=== PATIENT | female | born 1965 | race Caucasian/White ===

== ENCOUNTER → 2016-11-26 | Outpatient (CLI) | payer BC ==
--- NOTE | 2016-11-26 14:30 | MM ---
Reason for exam: screening (asymptomatic). Baseline mammogram. Physical Findings: Nurse did not find any significant physical abnormalities on exam. MG Screening Mammo w CAD Bilateral CC and MLO view(s) were taken. There are scattered fibroglandular densities. Nodularity measuring up to 7mm middle to posterior depth right breast upper outer quadrant has reinform shape and are suspected to represent prominent intramammary lymph nodes. Solitary nodularity in the left upper outer quadrant. These results were verbally communicated with the patient and result sheet given to the patient on 11/26/16. ASSESSMENT: Incomplete: need additional imaging evaluation, BI-RAD 0 RECOMMENDATION: Ultrasound of both breasts. (upper outer quadrants) MTDD
--- NOTE | 2016-11-26 14:39 | USB ---
Reason for exam: additional evaluation requested from abnormal screening. US Breast Workup Limited MICHELLE Right breast ultrasound demonstrates a 1.1 x 1.1 x 0.8cm oval node at 11 o' clock and a 0.9 x 0.8 x 0.5cm oval node at 10 o'clock. These are benign findings on ultrasound and likely correspond to the mammographic findings and can be reassessed in 6 months on mammogram. Left breast ultrasound demonstrates: - a 1.5 x 2.1 x 1.5cm round, suspected lipoma, hyperechoic lesion at 3 o'clock, - a 1.7 x 1.6 x 0.7cm oval lesion at 1 o'clock and a 2.9 x 2.3 x 1.2cm oval lesion at 1 o'clock, deep positioning limits evaluation. If these are lymph nodes they are mildly enlarged. Correlate with physical exam findings. 6 month follow up ultrasound recommended and also to reassess the echogenic lesion. These results were verbally communicated with the patient and result sheet given to the patient on 11/26/16. ASSESSMENT: Probably benign, BI-RAD 3 RECOMMENDATION: Follow-up diagnostic mammogram of the right breast in 6 months. Ultrasound of the left breast in 6 months. (12-3 o'clock) NAYELID
== END | disposition home or self-care (01) ==
LOC: RADMAMWWP 12:37
PROVIDERS: ATTEND Pediatrics
DX: Z12.31 Encounter for screening mammogram for malignant neoplasm of breast (principal); R92.8 Other abnormal and inconclusive findings on diagnostic imaging of breast
CPT/HCPCS: 76642; G0202

== ENCOUNTER → 2016-12-31 | Outpatient (CLI) | payer BC ==
[2016-12-31 09:34] VITALS: BMI 51.9
== END ==
LOC: MNTWWP 09:03
PROVIDERS: ATTEND Surgery
DX: E66.9 Obesity, unspecified (principal)
CPT/HCPCS: 97802

== ENCOUNTER → 2018-01-07 | Outpatient (CLI) | payer BC ==
--- NOTE | 2018-01-09 08:12 | MM ---
Reason for exam: screening (asymptomatic). Last mammogram was performed 7 months ago. Physical Findings: A clinical breast exam by your physician is recommended on an annual basis and results should be correlated with mammographic findings. MG Screening Mammo w CAD Bilateral CC and MLO view(s) were taken. Prior study comparison: June 02, 2017, right breast MG diagnostic mammo RT w CAD. November 26, 2016, bilateral MG screening mammo w CAD. There are scattered fibroglandular densities. No suspicious abnormality. No significant changes when compared with prior studies. ASSESSMENT: Negative, BI-RAD 1 RECOMMENDATION: Routine screening mammogram of both breasts in 1 year.
== END | disposition home or self-care (01) ==
LOC: RADMAMWWP 11:23
PROVIDERS: ATTEND Pediatrics
DX: Z12.31 Encounter for screening mammogram for malignant neoplasm of breast (principal)
CPT/HCPCS: 77067

== ENCOUNTER → 2019-02-09 | Outpatient (CLI) | payer BC ==
--- NOTE | 2019-02-10 08:36 | MM ---
Reason for exam: screening (asymptomatic). Last mammogram was performed 1 year and 1 month ago. Physical Findings: A clinical breast exam by your physician is recommended on an annual basis and results should be correlated with mammographic findings. MG Screening Mammo w CAD Bilateral CC, MLO, and XCCL view(s) were taken. Prior study comparison: January 07, 2018, bilateral MG screening mammo w CAD. June 02, 2017, right breast MG diagnostic mammo RT w CAD. There are scattered fibroglandular densities. There is chronic nodularity bilaterally. There is no discrete abnormality. ASSESSMENT: Benign, BI-RAD 2 RECOMMENDATION: Routine screening mammogram of both breasts in 1 year.
== END | disposition home or self-care (01) ==
LOC: RADMAMWWP 09:58
PROVIDERS: ATTEND Pediatrics
DX: Z12.31 Encounter for screening mammogram for malignant neoplasm of breast (principal)
CPT/HCPCS: 77067

== ENCOUNTER → 2019-10-25 | Outpatient (CLI) | payer BC ==
--- NOTE | 2019-10-25 16:27 | US ---
EXAMINATION TYPE: US thyroid st tissue head/neck DATE OF EXAM: 10/25/2019 COMPARISON: NONE CLINICAL HISTORY: 54-year-old female E21.0 Primary hyperparathyroidism. TECHNIQUE: Multiple sonographic images of the thyroid gland are obtained. FINDINGS: GLAND SIZE: Right Lobe: 4.7 x 1.0 x 1.1 cm Overall Parenchyma: homogenous Left Lobe: 4.7 x 0.8 x 1.1 cm Overall Parenchyma: homogeneous Isthmus Thickness: 0.3 cm NODULES RIGHT: # of nodules measured on right: 0 LEFT: # of nodules measured on left: 0 ISTHMUS: # of nodules measured in the isthmus: 0 Bilateral neck scanned, no evidence of lymphadenopathy. IMPRESSION: Normal-sized thyroid gland. No discrete nodule.
== END | disposition home or self-care (01) ==
LOC: RADUSWWP 12:49
PROVIDERS: ATTEND Pediatrics
DX: E21.0 Primary hyperparathyroidism (principal)
CPT/HCPCS: 76536

== ENCOUNTER → 2020-06-01 | Outpatient (CLI) | payer BC ==
--- NOTE | 2020-06-05 08:18 | MM ---
Reason for exam: screening (asymptomatic). Last mammogram was performed 1 year and 4 months ago. Physical Findings: A clinical breast exam by your physician is recommended on an annual basis and results should be correlated with mammographic findings. MG Screening Mammo w CAD Bilateral CC and MLO view(s) were taken. Prior study comparison: February 09, 2019, bilateral MG screening mammo w CAD. January 07, 2018, bilateral MG screening mammo w CAD. There are scattered fibroglandular densities. There is chronic nodularity bilaterally. No significant changes when compared with prior studies. ASSESSMENT: Benign, BI-RAD 2 RECOMMENDATION: Routine screening mammogram of both breasts in 1 year.
== END | disposition home or self-care (01) ==
LOC: RADMAMWWP 13:17
PROVIDERS: ATTEND Physician Assistant
DX: Z12.31 Encounter for screening mammogram for malignant neoplasm of breast (principal)
CPT/HCPCS: 77067

== ENCOUNTER → 2020-10-23 | Outpatient (CLI) | payer BC ==
--- NOTE | 2020-10-23 17:05 | US ---
EXAMINATION TYPE: US pelvic complete DATE OF EXAM: 10/23/2020 COMPARISON: NONE CLINICAL HISTORY: 55-year-old female N92.6 Irregular menstruation, unspecified. Patient said she has always had irregular cycles. TECHNIQUE: Transabdominal sonographic images of the pelvis were acquired. Denied TV FINDINGS: Copy Reader notes: Large patient body habitus Date of LMP: today, 10/23/2020 EXAM MEASUREMENTS: Uterus: 8.9 x 6.3 x 5.7 cm Endometrial Stripe: 2.1 cm Right Ovary: 2.8 x 2.5 x 1.2 cm Left Ovary: not seen 1. Uterus: Retroverted but otherwise wnl 2. Endometrium: Excessively thickened 3. Right Ovary: wnl 4. Left Ovary: Obscured by overlying bowel gas 5. Bilateral Adnexa: wnl 6. Posterior cul-de-sac: wnl IMPRESSION: 1. Retroverted uterus. 2. Excessively thickened endometrial stripe measuring 2.1 cm. Recommend LOGISTICS SERVICE REPRESENTATIVE referral for further f ollow-up and evaluation. Differential considerations include endometrial carcinoma, underlying polyps , and endometrial hyperplasia. 3. Left ovary obscured by bowel gas.
== END | disposition home or self-care (01) ==
LOC: RADUSWWP 09:41
PROVIDERS: ATTEND Pediatrics
DX: R93.89 Abnormal findings on diagnostic imaging of other specified body structures (principal); N85.4 Malposition of uterus; R14.3 Flatulence
CPT/HCPCS: 76856

== ENCOUNTER → 2021-01-24 | Outpatient (CLI) | payer BC, OTHER ==
[2021-01-24 14:19] LABS: Basophils % (A) 1 %; Eosinophils # (A) 0.2 k/uL (0-0.7); Eosinophils % (A) 3 %; HCT 42.9 % (34.0-46.0); HGB 14.3 gm/dL (11.4-16.0); Lymphocytes # (A) 1.6 k/uL (1.0-4.8); Lymphocytes % (A) 29 %; MCH 30.4 pg (25.0-35.0); MCHC 33.4 g/dL (31.0-37.0); MCV 91.1 fL (80.0-100.0); Monocytes # (A) 0.4 k/uL (0-1.0); Monocytes % (A) 6 %; Neutrophils # (A) 3.3 k/uL (1.3-7.7); Neutrophils % (A) 59 %; Platelet Count 255 k/uL (150-450); RBC 4.71 m/uL (3.80-5.40); RDW 12.8 % (11.5-15.5); WBC 5.6 k/uL (3.8-10.6)
== END | disposition home or self-care (01) ==
LOC: LABPAT 13:15
PROVIDERS: ATTEND Obstetrics & Gynecology
DX: Z01.812 Encounter for preprocedural laboratory examination (principal)
CPT/HCPCS: 36415; 85025; 93005

== ENCOUNTER 2021-01-30 06:28 | Day surgery (SDC) | payer BC, OTHER ==
[2021-01-25 14:01] VITALS: BMI 37.3
--- NOTE | 2021-01-29 19:31 | P.HPOB ---
History of Present Illness H&P Date: 01/29/21 Chief Complaint: Thickened endometrium, menorrhagia with irregular cycle This is a 55 y.o. female, 1, para 1, who presents for dilatation and curettage with hysteroscopy due to endometrial thickening on ultrasound and menorrhagia with irregular cycle. She complains of menses occuring approximately monthly, but lasting anywhere from 3-7 days up to 2 weeks. She has lost up to 100 lbs. in the last year and periods have become more regular. Her pelvic US showed uterus measuring 8.9 x 6.3 x 5.9 cm with endometrium of 2.1 cm. Her right ovary was normal and left ovary was normal. OB Hx: . 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 No hx. STDs. 1 current partner. Using condoms. Social Hx: . 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 Review of Systems Constitutional: Denies chills, Denies fever Eyes: denies blurred vision, denies pain Ears, nose, mouth and throat: Denies headache, Denies sore throat Cardiovascular: Denies chest pain, Denies shortness of breath Respiratory: Denies cough Gastrointestinal: Denies abdominal pain, Denies diarrhea, Denies nausea, Denies vomiting Genitourinary: Reports menorrhagia, Denies dysuria, Denies hematuria Menstruation: Reports menses variable, Reports period heavy Musculoskeletal: Denies myalgias Integumentary: Denies pruritus, Denies rash Neurological: Denies numbness, Denies weakness Psychiatric: Denies anxiety, Denies depression Endocrine: Denies fatigue, Denies weight change Past Medical History Past Medical History: Diabetes Mellitus, Hypertension, Thyroid Disorder History of Any Multi-Drug Resistant Organisms: None Reported Additional Past Surgical History / Comment(s): Parathyroidectomy. Past Anesthesia/Blood Transfusion Reactions: No Reported Reaction Past Psychological History: No Psychological Hx Reported Smoking Status: Never smoker Past Alcohol Use History: Rare Past Drug Use History: Marijuana Additional Drug Use History / Comment(s): Occasional Marijuana use. Aware no use 24 hrs prior to procedure. - Past Family History Sister(s) Family Medical History: Deep Vein Thrombosis (DVT) Mother Family Medical History: Hypertension Medications and Allergies Home Medications Medication Instructions Recorded Confirmed Type Ascorbic Acid [Vitamin C] 1,000 mg PO DAILY 01/25/21 01/25/21 History Ergocalciferol [Vitamin D2 (1250 1,250 mcg PO MO 01/25/21 01/25/21 History Mcg = 70592 Iu)] Levothyroxine Sodium 25 mcg PO QAM 01/25/21 01/25/21 History Lisinopril [Prinivil] 10 mg PO QAM 01/25/21 01/25/21 History Phentermine HCl [Adipex-P] 37.5 mg PO DAILY 01/25/21 01/25/21 History metFORMIN HCL 1,000 mg PO QAM 01/25/21 01/30/21 History Allergies Allergy/AdvReac Type Severity Reaction Status Date / Time No Known Allergies Allergy Verified 01/30/21 06:57 Exam Osteopathic Statement: *. No significant issues noted on an osteopathic structural exam other than those noted in the History and Physical/Consult. HEENT: within normal limits Heart: regular rate and rhythm Lungs: clear to auscultation bilaterally Abdomen: soft, non-tender Pelvic: uterus small, anteverted, non-tender, no adnexal masses or tenderness Extremities: neg. Riley's. Assessment and Plan (1) Menorrhagia with irregular cycle Current Visit: No Status: Acute Code(s): N92.1 - EXCESSIVE AND FREQUENT MENSTRUATION WITH IRREGULAR CYCLE SNOMED Code(s): 162768357 (2) Endometrial thickening on ultrasound Current Visit: No Status: Acute Code(s): R93.89 - ABNORMAL FINDINGS ON DX IMAGING OF OTH BODY STRUCTURES SNOMED Code(s): 323216729 Plan: Proceed with dilatation and curettage with hysteroscopy. I have discussed the risks, benefits, and alternative therapies for the above- mentioned procedure and for both sedation/anesthesia as well as necessary blood products administration, if indicated, as they pertain to this patient. The patient has indicated her understanding and acceptance of the risks and procedures discussed.
[~2021-01-30 06:28] MED LIST: Pre Op ABX Message 1 EACH MISC MISCELLANE ONE
[2021-01-30] MEDS ORDERED: MIDAZOLAM 2 MG/2 ML VIAL IV PRN (06:45)
[2021-01-30] MEDS ORDERED: LIDOCAINE 1% (10MG/ML) FOR IV START INTRADERMA PRN (06:45)
[2021-01-30] MEDS ORDERED: ONDANSETRON 4 MG/2 ML VIAL IVP ONE (06:45)
[2021-01-30] MEDS ORDERED: LACTATED RINGERS 1,000 ML IV SCH (06:45)
[2021-01-30] MEDS ORDERED: DEXAMETHASONE SOD PHOSPHATE 4 MG/ML 1 ML VIAL IV ONE (06:45)
[2021-01-30] MEDS ORDERED: HYDROmorphone 0.5 MG/0.5 ML SYRINGE IVP PRN (07:00)
[2021-01-30 07:09] VITALS: RESP 16
[2021-01-30 07:11] LABS: Glucose,Whole Blood 117 mg/dL (75-99)
[2021-01-30] MEDS ORDERED: PROPOFOL 10 MG/ML 20 ML VIAL IV ONE (07:30)
[2021-01-30] MEDS ORDERED: MIDAZOLAM 2 MG/2 ML VIAL ONE (07:30)
[2021-01-30] MEDS ORDERED: LIDOCAINE 1% INJ 10MG/ML (20 ML MDV) ONE (07:30)
[2021-01-30] MEDS ORDERED: fentaNYL (PF) 50 MCG/ML 2 ML AMP ONE (07:30)
--- NOTE | 2021-01-30 08:02 | P.OP ---
Date of Procedure: 01/30/21 Preoperative Diagnosis: Menorrhagia with irregular cycle Endometrial thickening Postoperative Diagnosis: Same Procedure(s) Performed: Hysteroscopy with dilation and curettage Anesthesia: TREY Surgeon: Polly Langley Estimated Blood Loss (ml): 5 Pathology: other (Endometrial curettings) Condition: stable Disposition: same day Indications for Procedure: This is a 55 y.o. female, 1, para 1, who presents for dilatation and curettage with hysteroscopy due to endometrial thickening on ultrasound and menorrhagia with irregular cycle. She complains of menses occuring approximately monthly, but lasting anywhere from 3-7 days up to 2 weeks. She has lost up to 100 lbs. in the last year and periods have become more regular. Her pelvic US showed uterus measuring 8.9 x 6.3 x 5.9 cm with endometrium of 2.1 cm. Her right ovary was normal and left ovary was normal. Operative Findings: Uterus is anteverted, sounded to 9 cm. No adnexal masses are palpated. Upon hysteroscopy, multiple endometrial polyps are noted. Neither tubal ostia was clearly visualized. A moderate to large amount of endometrial curettings are obtained. Description of Procedure: The patient is taken to the operating room where she is placed in the dorsal lithotomy position. She is prepped and draped in the normal sterile fashion. Her bladder is drained with a catheter and then removed. Examination is performed under intravenous is found to be anteverted, with no adnexal masses palpated. Next a weighted speculum was placed in the patient's vagina and a right angle retractor was used to visualize the anterior lip of the cervix. The cervix was grasped with a single-tooth tenaculum. Next the uterus is sounded to 9 cm. Cervix is gently dilated with Zimmerman dilators until a hysteroscope be passed. Hysteroscopy is performed using normal saline. The above noted findings are made and pictures are taken. Hysteroscope was withdrawn and then a polyp forceps was introduced. A large amount of polypoid type tissue is obtained. Next a medium-size sharp curet was introduced and sharp curettage was performed until a gritty texture was noted. A moderate to large amount of tissue was obtained. The specimen is removed from the field. The single-tooth tenaculum is removed. No bleeding is noted. All instrument are removed from the vagina. All sponge counts are correct. The patient is then taken to recovery room in stable condition.
[2021-01-30 08:08] VITALS: TEMP 97.1
[2021-01-30] MEDS ORDERED: LACTATED RINGERS 1,000 ML IV ONE (09:03)
[2021-01-30 09:47] VITALS: BP 118/76; PULSE 84
== END 2021-01-30 10:17 | disposition home or self-care (01) ==
LOC: OR 06:28
PROVIDERS: ATTEND Obstetrics & Gynecology
DX: N92.1 Excessive and frequent menstruation with irregular cycle (principal); R93.89 Abnormal findings on diagnostic imaging of other specified body structures; E11.9 Type 2 diabetes mellitus without complications; I10 Essential (primary) hypertension; E07.9 Disorder of thyroid, unspecified; E89.2 Postprocedural hypoparathyroidism; Z82.49 Family history of ischemic heart disease and other diseases of the circulatory system; Z79.84 Long term (current) use of oral hypoglycemic drugs; Z79.890 Hormone replacement therapy; Z79.899 Other long term (current) drug therapy
CPT/HCPCS: 81025; 88305; 58558; J2250; J1100; J2405; J2001; J3010; J2704

== ENCOUNTER → 2021-07-18 | Outpatient (CLI) | payer BC, OTHER ==
--- NOTE | 2021-07-20 13:12 | MM ---
Reason for exam: screening (asymptomatic). Last mammogram was performed 1 year and 2 months ago. History: Patient is postmenopausal. Physical Findings: A clinical breast exam by your physician is recommended on an annual basis and results should be correlated with mammographic findings. MG 3D Screening Mammo W/Cad Bilateral CC and MLO view(s) were taken. XCCL view(s) were taken of the left breast. Prior study comparison: June 01, 2020, bilateral MG screening mammo w CAD. February 09, 2019, bilateral MG screening mammo w CAD. There are scattered fibroglandular densities. There is chronic nodularity in the right breast. No significant changes when compared with prior studies. ASSESSMENT: Benign, BI-RAD 2 RECOMMENDATION: Routine screening mammogram of both breasts in 1 year.
== END | disposition home or self-care (01) ==
LOC: RADMAMWWP 12:55
PROVIDERS: ATTEND Pediatrics
DX: Z12.31 Encounter for screening mammogram for malignant neoplasm of breast (principal); Z78.0 Asymptomatic menopausal state
CPT/HCPCS: 77063; 77067

== ENCOUNTER → 2022-07-31 | Outpatient (CLI) | payer BC, OTHER ==
--- NOTE | 2022-08-02 18:27 | MM ---
Reason for Exam: Screening (asymptomatic). Last screening mammogram was performed 12 month(s) ago. Patient History: Menarche at age 15. First Full-Term at age 26. Left ovary removed at age 55. Right ovary removed at age 55. Hysterectomy at age 55. Postmenopausal. Risk Values: Rosanna 5 year model risk: 1.1%. NCI Lifetime model risk: 7.4%. Prior Study Comparison: 02/09/2019 Bilateral Screening Mammogram, [facility]. 06/01/2020 Bilateral Screening Mammogram, [facility]. 07/18/2021 Bilateral Screening Mammogram, [facility]. Tissue Density: There are scattered fibroglandular densities. Findings: Analyzed By CAD. Chronic nodularity bilateral upper quadrant both breasts compatible with intramammary lymph nodes. There is no suspicious group of microcalcifications or new suspicious mass in either breast. Overall Assessment: Benign, BI-RAD 2 Management: Screening Mammogram of both breasts in 1 year. 1. Patient should continue monthly self breast exams. 2. A clinical breast exam by your physician is recommended on an annual basis. 3. This exam should not preclude additional follow-up of suspicious palpable abnormalities. Electronically signed and approved by: Kurtis Adames M.D. Radiologist
== END | disposition home or self-care (01) ==
LOC: RADMAMWWP 13:31
PROVIDERS: ATTEND Pediatrics
DX: Z12.31 Encounter for screening mammogram for malignant neoplasm of breast (principal); Z78.0 Asymptomatic menopausal state
CPT/HCPCS: 77063; 77067